=== PATIENT | male | born 1935 | race Caucasian/White ===

== ENCOUNTER 2016-12-31 14:49 | Inpatient (IN) | payer OTHER ==
[~2016-12-31] VITALS: Ht 182.9 cm; Wt 87.7 kg
[2016-12-31 15:42] LABS: ADD MIUA? YES; BILIRUBIN NEGATIVE; BLOOD SMALL; COLOR AMBER ((YELLOW)); GLUCOSE (STRIP) NEGATIVE; KETONES NEGATIVE; LEUKOCYTES MODERATE; NITRITE POSITIVE; PROTEIN (STRIP) 100; SPECIFIC GRAVITY 1.024 (1.000-1.030)
[2016-12-31 15:49] LABS: EOSINOPHIL (%) 0.1 % (0-5); HEMATOCRIT 40.6 % (38.0-50.0); IMMATURE GRANULOCYTE (%) 0.6 % (0.0-0.7); IMMATURE GRANULOCYTE COUNT 0.1 K/uL; INSTRUMENT ABS NEUTROPHIL CT 15.7 K/uL; MCH 32.5 PG (29.0-34.0); MCV 95.8 FL (86-99); MONOCYTE (%) 8.8 % (3-12); MONOCYTE COUNT 1.6 K/uL (0-0.8); NEUTROPHIL (%) 84.7 % (45-76); NEUTROPHIL COUNT 15.7 K/uL (1.8-6.4); PLATELET COUNT 167 K/uL (156-360); RBC DIS.WIDTH-CV 12.2 % (11.8-14.6); RBC DIS.WIDTH-SD 42.9 % (39-53); RED BLOOD COUNT 4.24 M/uL (4.00-5.50); WHITE BLOOD COUNT 18.5 K/uL (4.1-10.2)
[2016-12-31 16:04] LABS: CHLORIDE 101 mEq/L (99-109); POTASSIUM 4.2 mEq/L (3.7-5.4); SODIUM 134 mEq/L (136-147)
[2016-12-31 16:05] LABS: GLUCOSE 107 mg/dL (70-99)
[2016-12-31 16:07] LABS: ANION GAP 11 MEQ/L (2-14)
[2016-12-31 16:09] LABS: GFR ESTIMATE (CALCULATED) > 59 mL/min/
[2016-12-31 16:10] LABS: UREA NITROGEN (BUN) 17 mg/dL (9-23)
[2016-12-31 16:55] LABS: CASTS NONE SEEN /LPF; EPITHELIAL CELLS RARE /HPF; MUCUS NONE SEEN /LPF
[2016-12-31 16:56] LABS: BACTERIA 4+ /HPF; RED BLOOD CELLS 15-20 /HPF (0-5); UCUL ADDED? YES; WHITE BLOOD CELLS 30-40 /HPF (0-5)
[2016-12-31] MEDS ORDERED: CARBAMAZEPINE100 M2 PO (18:10)
[2016-12-31] MEDS ORDERED: VITAMIN D31000 UNIT PO (18:37)
[2016-12-31] MEDS ORDERED: CLOPIDOGREL75 MG PO (18:37)
[2016-12-31] MEDS ORDERED: METOPROLOL PO (19:11)
[2016-12-31] MEDS ORDERED: TOPROL XL50 MG PO (19:41)
[2016-12-31] MEDS ORDERED: TAMSULOSIN HCL0.4 MG PO (19:42)
[2016-12-31] MEDS ORDERED: TYLENOL EXTRA500 MG PO (19:42)
[2016-12-31] MEDS ORDERED: NIASPAN,SLO-NI500 MG PO (19:42)
[2016-12-31 20:45] LABS: TOTAL BILIRUBIN 1.9 mg/dL (0.0-1.0)
[2016-12-31 20:46] LABS: ALKALINE PHOSPHATASE 233 IU/L (3-129)
[2016-12-31 20:48] LABS: DIRECT BILIRUBIN 0.8 mg/dL (0.0-0.3)
[2017-01-01] VITALS (7 sets, daily range): BP systolic 106–147; BP diastolic 52–77
[2017-01-01 06:14] LABS: HEMATOCRIT 37.2 % (38.0-50.0); MCH 34.4 PG (29.0-34.0); MCHC 35.2 G/DL (30.0-36.0); MCV 97.6 FL (86-99); MEAN PLAT.VOLUME 8.6 uM^3 (9.0-12.4); PLATELET COUNT 152 K/uL (156-360); RBC DIS.WIDTH-CV 12.3 % (11.8-14.6); RBC DIS.WIDTH-SD 44.7 % (39-53); RED BLOOD COUNT 3.81 M/uL (4.00-5.50); WHITE BLOOD COUNT 17.8 K/uL (4.1-10.2)
[2017-01-01 06:39] LABS: ANION GAP 9 MEQ/L (2-14); CHLORIDE 107 MEQ/L (99-109); GFR ESTIMATE (CALCULATED) > 59 mL/min/; GLUCOSE 89 mg/dL (70-99); POTASSIUM 4.1 MEQ/L (3.7-5.4); SAMPLE HEMOLYSIS CHECK 0; SAMPLE ICTERIC CHECK 0; SAMPLE LIPEMIA CHECK 0; SODIUM 140 MEQ/L (136-147); UREA NITROGEN (BUN) 15 mg/dL (9-23)
[2017-01-02] VITALS (7 sets, daily range): BP systolic 119–156; BP diastolic 56–82
[2017-01-03 03:43] VITALS: BP 139/77
[2017-01-03 08:12] VITALS: BP 153/79
[2017-01-03 10:00] LABS: MCH 33.5 PG (29.0-34.0); MCHC 35.4 G/DL (30.0-36.0); MCV 94.6 FL (86-99); MEAN PLAT.VOLUME 8.6 uM^3 (9.0-12.4); PLATELET COUNT 142 K/uL (156-360); RBC DIS.WIDTH-CV 12.5 % (11.8-14.6); RBC DIS.WIDTH-SD 43.4 % (39-53); RED BLOOD COUNT 3.91 M/uL (4.00-5.50); WHITE BLOOD COUNT 6.6 K/uL (4.1-10.2)
[2017-01-03 10:19] LABS: ANION GAP 9 MEQ/L (2-14); CHLORIDE 104 MEQ/L (99-109); GFR ESTIMATE (CALCULATED) > 59 mL/min/; GLUCOSE 101 mg/dL (70-99); POTASSIUM 3.9 MEQ/L (3.7-5.4); SAMPLE HEMOLYSIS CHECK 0; SAMPLE ICTERIC CHECK 0; SAMPLE LIPEMIA CHECK 0; SODIUM 137 MEQ/L (136-147); UREA NITROGEN (BUN) 12 mg/dL (9-23)
[2017-01-03 12:05] VITALS: BP 136/63
[2017-01-03 16:26] VITALS: BP 131/66
[2017-01-03 19:07] VITALS: BP 133/77
[2017-01-04] VITALS: BP 133/77
[2017-01-04 04:00] VITALS: BP 136/62
[2017-01-04 07:38] VITALS: BP 147/81
[2017-01-04] MEDS ORDERED: BACTRIM,SEPT1 TABLET PO ×2 (10:36→12:40)
[2017-01-04 11:17] VITALS: BP 121/68
== END 2017-01-04 13:22 | disposition home health service (06) | DRG 872 ==
LOC: EME 14:49 → EDOF 18:40 → 5SOUTH 18:40
PROVIDERS: Hospitalist; Physician Assistant Medical
DX: A41.9 Sepsis, unspecified organism (principal); N39.0 Urinary tract infection, site not specified; B96.20 Unspecified Escherichia coli [E. coli] as the cause of diseases classified elsewhere; N40.1 Benign prostatic hyperplasia with lower urinary tract symptoms; R33.8 Other retention of urine; R39.15 Urgency of urination; E86.0 Dehydration; I10 Essential (primary) hypertension; I25.10 Atherosclerotic heart disease of native coronary artery without angina pectoris; E78.5 Hyperlipidemia, unspecified; G47.33 Obstructive sleep apnea (adult) (pediatric); K21.9 Gastro-esophageal reflux disease without esophagitis; G50.0 Trigeminal neuralgia; F32.9 Major depressive disorder, single episode, unspecified; Z95.5 Presence of coronary angioplasty implant and graft; Z79.02 Long term (current) use of antithrombotics/antiplatelets
CPT/HCPCS: 71020; 76705; 80048; 80076; 81003; 82948; 83605; 84443; 85025; 85027; 87040; 87077; 87086; 87186; 93005; 97530 GP; 99281; 99285; J0692; J0696; J1644; J7030; J7050